=== PATIENT | male | born 1950 | race Caucasian/White ===

== ENCOUNTER 2020-12-19 07:22 | Emergency (ER) | payer OTHER ==
[~2020-12-19] VITALS: Ht 162.6 cm; Wt 54.4 kg
[~2020-12-19 07:22] MED LIST: ALTACE10 MG PO; LEVSIN0.125 MG PO; NORVASC5 MG PO; TAMS0.4C PO; ULTRACET PO
== END 2020-12-19 14:27 | disposition home or self-care (01) ==
LOC: ER 07:22
DX: R10.12 Left upper quadrant pain (principal); Z85.028 Personal history of other malignant neoplasm of stomach